=== PATIENT | male | born 1970 | race Caucasian/White ===

== ENCOUNTER 2017-01-23 13:49 | Inpatient (IN) | payer SELFPAY ==
[2017-01-23 13:54] VITALS: BMI 22.3
--- NOTE | 2017-01-23 14:07 | DR.GENAD ---
HPI - PCP Primary Care Physician: derek hill - HPI Comment HPI Comment: EXPOSE TO HEAT SEVERAL DAYS AND FEELING SICK. NAUSEATED, MUSCLE PAIN, CHEST AND STOMACK PAIN, AND HEADACHE. NO FEVER. HAVING NEAR SYNCOPAL EPISODES EVERY TIME HE GETS UP. NO FEVER. WEAK AND DRAIN OF ENERGY. - Complaint/Symptoms Chief Complaint Doctors Comments: LOW BLOOD PRESSURE, DEHYDRATION AND CHEST AND MUSCLE PAIN FOR FEW DAYS. Chief Complaint:: patient stated he has been having chest pain , back pain, fainting, dehydration, and low blood pressure - Nurses notes reviewed Nurses Notes Review: Yes - Source History Provided: Patient - Mode of Arrival Mode of Arrival: Ambulatory - Timing Onset of Chief Complaint: 01/20/17 Came on: Suddenly - Duration Duration: Constant Duration: Days - Severity Severity: Moderate PMH - PMH Past Medical History: Yes Past Medical History: Hypertension Past Surgical History: Yes Surgical History: Ortho Surgery - Family History History of Family Medical Conditions: No - Social History Does patient currently use any type of tobacco product: Yes Have you used tobacco products in the last 12 months: Yes Type of Tobacco Use: Cigarettes How many years tobacco product used: 20 Does any household member use tobacco: No Alcohol Use: Occasionally Do you use any recreational Drugs:: No Lives With: Family Lives Where: Home - infectious screening In the last 2 months have you had wt loss of >10#?: NO Have you had fever, night sweats or hemotysis?: No Have you traveled outside the country in the last 6 months?: No Isolation: Standard ROS - Review of Systems Constitutional: Weakness, Fatigue, Loss of Appetite. negative: Chills, Fever Eyes: Blurred Vision. negative: Eye Pain, Discharge ENTM: No Symptoms Reported. negative: Ear Pain, Nose Discharge, Nose Congestion , Throat Pain Respiratoy: Non-Productive Cough, Short of Breath. negative: Productive Cough, Wheezing, Hemoptysis Cardiovascular: Chest Pain, Palpitations Gastrointestinal/Abdominal: Nausea, Vomiting Genitourinary: No Symptoms Reported. negative: Dysuria, Frequency, Hematuria Neurological: Headache, Weakness, Dizziness Musculoskeletal: Muscle Pain Integumentary: No Symptoms Reported Hematologic/Lymphatic: No Symptoms Reported Endocrine: No Symptoms Reported All Other Systems: Reviewed and Negative PE - Vital Signs Vitals: Temperature 98.6 F Pulse Rate [Left Brachial] 68 Pulse Rate 79 Respiratory Rate 18 Blood Pressure [Left Arm] 110/64 Blood Pressure 109/67 O2 Sat by Pulse Oximetry 100 - General Limitations: No Limitations General Appearance: Alert - Head Head Exam: Normal Inspection - Eyes Eye exam: Normal Appearance - ENT ENT Exam: Normal External Ear Exam External Ear Exam: Normal External Inspection TM/Canal Exam: Bilateral Normal Nose Exam: Normal Nose Exam Mouth Exam: Normal Inspection Throat Exam: Normal Inspection - Neck Neck Exam: Normal Inspection, Trachea Midline - Chest Chest Inspection: Symmetric Chest Wall Rise - Respiratory Respiratory Exam: Normal Lung Sounds Bilat Respiratory Exam: Bilateral Clear to Auscultation - Cardiovascular Cardiovascular Exam: Regular Rate, Normal Rhythm, Normal Heart Sounds - Abdominal Exam Abdominal Exam: Normal Bowel Sounds, Soft, Tenderness Abdominal Tenderness: Diffuse, Mild - Extremities Extremities Exam: Normal Inspection - Back Back Exam: Normal Inspection - Neurologic Neurological Exam: Alert, Oriented X3 - Psychiatric Psychiatric Exam: Normal Affect, Normal Mood - Skin Skin Exam: Normal Color MDM - Additional Information Additional Information Obtained From: Family - Differential Diagnosis Differential Diagnosis: ACUTE RENAL FAILURE, HYPOTENSION, DEHYDRATION, HEAT ILLNESS. Course - Treatment Treatment: SEE ORDERS. - Consultation Consultation Comments: DISCUSS PATIENT WITH DR. LR. HE WILL ADMIT PATIENT. - Education/Counseling Education/Counseling: Patient, Family, Education Educated On: Treatment, Diagnosis ROR - Labs Reviewed Laboratory Results Reviewed?: Yes Result Diagrams: 01/24/17 05:03 01/24/17 05:03 Laboratory: WBC 8.3 X10^3/uL (3.6-10.0) 01/23/17 14:09 RBC 4.64 X10^6/uL (4.7-6.0) L 01/23/17 14:09 Hgb 14.5 g/dL (13.5-18.0) 01/23/17 14:09 Hct 41.0 % (42.0-54.0) L 01/23/17 14:09 MCV 88.5 fL (80.0-100.0) 01/23/17 14:09 MCH 31.3 pg (27.0-34.0) 01/23/17 14:09 MCHC 35.4 g/dL (33.0-35.0) H 01/23/17 14:09 RDW 14.4 % (11.6-16.5) 01/23/17 14:09 Plt Count 174 X10^3/uL (150.0-450.0) 01/23/17 14:09 MPV 9.2 fL (7.4-11.0) 01/23/17 14:09 Neut % 68.3 % (42.0-75.0) 01/23/17 14:09 Lymph % 18.7 % (21.0-51.0) L 01/23/17 14:09 [place] % 11.6 % (0.0-13.0) 01/23/17 14:09 Eos % 1.0 % (0.9-2.9) 01/23/17 14:09 Baso % 0.4 % (0.2-1.0) 01/23/17 14:09 Neut # 5.7 x10^3/uL (2.2-4.8) H 01/23/17 14:09 Lymph # 1.6 X10^3/uL (1.3-2.9) 01/23/17 14:09 [place] # 1.0 x10^3/uL (0.3-0.8) H 01/23/17 14:09 Eos # 0.1 x10^3/uL (0.0-0.2) 01/23/17 14:09 Baso # 0.0 X10^3/uL (0.0-0.1) 01/23/17 14:09 Absolute Nucleated RBC 0.1 /100WBC 01/23/17 14:09 Sodium 139 mmol/L (136-145) 01/23/17 14:09 Corrected Sodium TNP 01/23/17 14:09 Potassium 4.3 mmol/L (3.5-5.1) 01/23/17 14:09 Chloride 101 mmol/L (98-107) 01/23/17 14:09 Carbon Dioxide 25.6 mmol/L (21-32) 01/23/17 14:09 BUN 79 mg/dL (7-18) H 01/23/17 14:09 Creatinine 7.13 mg/dL (0.70-1.30) H 01/23/17 14:09 Est GFR (MDRD) Af Amer 11 (>60) L 01/23/17 14:09 Est GFR (MDRD) Non-Af 9 (>60) L 01/23/17 14:09 Glucose 90 mg/dL (65-99) 01/23/17 14:09 Calcium 9.6 mg/dL (8.5-10.1) 01/23/17 14:09 Corrected Calcium TNP 01/23/17 14:09 Total Bilirubin 0.50 mg/dL (0.2-1.0) 01/23/17 14:09 AST 28 Units/L (15-37) 01/23/17 14:09 ALT 46 Units/L (12-78) 01/23/17 14:09 Alkaline Phosphatase 62 Units/L (46-116) 01/23/17 14:09 Creatine Kinase 266 Units/L (39-308) 01/23/17 14:09 CK-MB (CK-2) 7.0 ng/mL (0-4.0) H* 01/23/17 14:09 CK/CKMB % Calc 2.6 % (<4) 01/23/17 14:09 Troponin I < 0.02 ng/mL (0-1.5) 01/23/17 14:09 Total Protein 7.6 g/dL (6.4-8.2) 01/23/17 14:09 Albumin 3.9 g/dL (3.4-5.0) 01/23/17 14:09 Globulin 3.7 g/dL (2.5-4.5) 01/23/17 14:09 Albumin/Globulin Ratio 1.1 Ratio (1.1-2.1) 01/23/17 14:09 Specimen Type Clean catch urine 01/23/17 15:49 Urine Color Dark yellow (YELLOW) 01/23/17 15:49 Urine Appearance Clear (CLEAR) 01/23/17 15:49 Urine pH 5.0 (5.0 - 8.0) 01/23/17 15:49 Ur Specific [place] 1.020 (1.000-1.030) 01/23/17 15:49 Urine Protein 2+ (NEGATIVE) 01/23/17 15:49 Urine Glucose (UA) Negative (NEGATIVE) 01/23/17 15:49 Urine Ketones Negative (NEGATIVE) 01/23/17 15:49 Urine Occult Blood 2+ (NEGATIVE) 01/23/17 15:49 Urine Nitrite Negative (NEGATIVE) 01/23/17 15:49 Urine Bilirubin Negative (NEGATIVE) 01/23/17 15:49 Urine Urobilinogen Normal (NORMAL) 01/23/17 15:49 Ur Leukocyte Esterase Negative (NEGATIVE) 01/23/17 15:49 Urine RBC 4-8 /HPF (NEGATIVE) 01/23/17 15:49 Urine WBC 0-1 /HPF (NEGATIVE) 01/23/17 15:49 Ur Squamous Epith Cells Few /HPF (NEGATIVE) 01/23/17 15:49 Ur Transition Epith Cell Many /HPF (NEGATIVE) 01/23/17 15:49 Ur Renal Epithelial Cell Moderate /HPF (NEGATIVE) 01/23/17 15:49 Urine Bacteria Negative /HPF (NEGATIVE) 01/23/17 15:49 Ur Culture Indicated? No/not indicated 01/23/17 15:49 - XRAY XRAY Interpreted by: Radiologist XRAY Findings: REPORT DISCUSS WITH PATIENT. - EKG Rhythm: NSR (EKG NOTED.) - Diagnosis Discharge Problem: Dehydration, Orthostatic hypotension, Heat effects Acute renal failure Qualifiers: Acute renal failure type: unspecified Qualified Code(s): N17.9 - Acute kidney failure, unspecified Heat causing syncope Qualifiers: Encounter type: initial encounter Qualified Code(s): T67.1XXA - Heat syncope, initial encounter - Discharge Plan Disposition: ADMITTED INPATIENT Condition: Stable - Follow ups/Referrals - Instructions
[2017-01-23] MEDS ORDERED: NS 1000 ML 1,000 ML ONE ×2 (14:09→15:46)
[2017-01-23] MEDS ORDERED: NS 1000 ML 1,000 ML IV ONE (14:27)
[2017-01-23 14:56] LABS: BASOPHILS % (AUTO) 0.4 % (0.2-1.0); EOSINOPHILS # (AUTO) 0.1 x10^3/uL (0.0-0.2); HEMOGLOBIN 14.5 g/dL (13.5-18.0); LYMPHOCYTES # (AUTO) 1.6 X10^3/uL (1.3-2.9); LYMPHOCYTES % (AUTO) 18.7 % (21.0-51.0); MEAN CORPUSCULAR HEMOGLOBIN 31.3 pg (27.0-34.0); MEAN CORPUSCULAR HGB CONC 35.4 g/dL (33.0-35.0); MEAN CORPUSCULAR VOLUME 88.5 fL (80.0-100.0); MEAN PLATELET VOLUME 9.2 fL (7.4-11.0); MONOCYTES % (AUTO) 11.6 % (0.0-13.0); NEUTROPHILS # (AUTO) 5.7 x10^3/uL (2.2-4.8); NEUTROPHILS % (AUTO) 68.3 % (42.0-75.0); PLATELET COUNT 174 X10^3/uL (150.0-450.0); RED BLOOD COUNT 4.64 X10^6/uL (4.7-6.0); RED CELL DISTRIBUTION WIDTH 14.4 % (11.6-16.5); WHITE BLOOD COUNT 8.3 X10^3/uL (3.6-10.0)
[2017-01-23 15:07] LABS: BLOOD UREA NITROGEN 79 mg/dL (7-18); CALCIUM 9.6 mg/dL (8.5-10.1); CARBON DIOXIDE 25.6 mmol/L (21-32); CHLORIDE 101 mmol/L (98-107); CREATININE 7.13 mg/dL (0.70-1.30); SODIUM 139 mmol/L (136-145); TROPONIN I < 0.02 ng/mL (0-1.5); eGFR BLACK RACES 11 (>60); eGFR NON BLACK RACES 9 (>60)
--- NOTE | 2017-01-23 15:18 | RAD ---
HISTORY: Chest pain and dehydration and weakness Study: AP chest Comparison: None Findings: The trachea is midline. The cardiac silhouette is unremarkable. The lungs are clear without focal i nfiltrate or effusion. The bony thorax is unremarkable. IMPRESSION: 1. No acute cardiopulmonary disease. Reported By:
[2017-01-23 15:30] LABS: ALANINE AMINOTRANSFERASE 46 Units/L (12-78); ALBUMIN 3.9 g/dL (3.4-5.0); ALKALINE PHOSPHATASE 62 Units/L (46-116); ASPARTATE AMINO TRANSFERASE 28 Units/L (15-37); CKMB % 2.6 % (<4); CREATINE KINASE 266 Units/L (39-308); TOTAL PROTEIN 7.6 g/dL (6.4-8.2)
[2017-01-23 16:40] LABS: BILIRUBIN,URINE NEGATIVE (NEGATIVE); BLOOD/HEMOGLOBIN,URINE 2+ (NEGATIVE); GLUCOSE, URINE NEGATIVE (NEGATIVE); KETONES,URINE NEGATIVE (NEGATIVE); LEUKOCYTE ESTERASE ,URINE NEGATIVE (NEGATIVE); NITRITES,URINE NEGATIVE (NEGATIVE); PROTEIN,URINE 2+ (NEGATIVE); UROBILINOGEN,URINE NORMAL (NORMAL)
[2017-01-23] MEDS: NS 1000 ML 1,000 ML IV SCH ×3 (16:57→23:01)
[2017-01-23 16:59] LABS: APPEARANCE,URINE CLEAR (CLEAR); BACTERIA,URINE NEGATIVE /HPF (NEGATIVE); COLOR,URINE DARK YELLOW (YELLOW); SQUAMOUS EPITHELIAL CELL,UR FEW /HPF (NEGATIVE)
[2017-01-23 17:00] LABS: RENAL EPITHELIAL CELLS,URINE MODERATE /HPF (NEGATIVE)
[2017-01-23] MEDS ORDERED: NICODERM PATCH 21 MG/24 HR TD ONE (17:02)
[2017-01-23] MEDS: NICODERM PATCH 21 MG/24 HR TD SCH (17:40)
[2017-01-23] MEDS ORDERED: ATIVAN INJ 2 MG VIAL IVP ONE (18:31)
[2017-01-23] MEDS ORDERED: XYLOCAINE VISCOUS ONE (18:32)
[2017-01-23] MEDS ORDERED: ATIVAN INJ 2 MG VIAL ONE (18:33)
[2017-01-23] MEDS: NORCO 5/325 MG TAB PO PRN (20:26)
[2017-01-24] MEDS: NS 1000 ML 1,000 ML IV SCH ×5 (04:11→20:50)
[2017-01-24 06:11] LABS: BASOPHILS % (AUTO) 0.8 % (0.2-1.0); EOSINOPHILS # (AUTO) 0.1 x10^3/uL (0.0-0.2); EOSINOPHILS % (AUTO) 2.6 % (0.9-2.9); HEMATOCRIT 34.8 % (42.0-54.0); HEMOGLOBIN 12.5 g/dL (13.5-18.0); LYMPHOCYTES # (AUTO) 1.4 X10^3/uL (1.3-2.9); LYMPHOCYTES % (AUTO) 32.2 % (21.0-51.0); MEAN CORPUSCULAR HEMOGLOBIN 31.8 pg (27.0-34.0); MEAN CORPUSCULAR HGB CONC 35.9 g/dL (33.0-35.0); MEAN CORPUSCULAR VOLUME 88.5 fL (80.0-100.0); MEAN PLATELET VOLUME 9.3 fL (7.4-11.0); MONOCYTES # (AUTO) 0.5 x10^3/uL (0.3-0.8); MONOCYTES % (AUTO) 10.4 % (0.0-13.0); NEUTROPHILS # (AUTO) 2.4 x10^3/uL (2.2-4.8); PLATELET COUNT 122 X10^3/uL (150.0-450.0); RED BLOOD COUNT 3.93 X10^6/uL (4.7-6.0); RED CELL DISTRIBUTION WIDTH 14.3 % (11.6-16.5); WHITE BLOOD COUNT 4.4 X10^3/uL (3.6-10.0)
[2017-01-24 06:37] LABS: ALANINE AMINOTRANSFERASE 35 Units/L (12-78); ALBUMIN 2.8 g/dL (3.4-5.0); ALKALINE PHOSPHATASE 50 Units/L (46-116); ASPARTATE AMINO TRANSFERASE 21 Units/L (15-37); BLOOD UREA NITROGEN 61 mg/dL (7-18); CALCIUM 8.3 mg/dL (8.5-10.1); CARBON DIOXIDE 23.8 mmol/L (21-32); CHLORIDE 114 mmol/L (98-107); CKMB % 2.2 % (<4); COR CA(FOR HYPOALB) 9.3 mg/dL (8.5-10.1); CREATINE KINASE 131 Units/L (39-308); CREATINE KINASE MB 2.9 ng/mL (0-4.0); CREATININE 2.56 mg/dL (0.70-1.30); SODIUM 145 mmol/L (136-145); TOTAL PROTEIN 5.8 g/dL (6.4-8.2); TROPONIN I < 0.02 ng/mL (0-1.5); eGFR BLACK RACES 35 (>60); eGFR NON BLACK RACES 29 (>60)
[2017-01-24] MEDS: NICODERM PATCH 21 MG/24 HR TD SCH (09:28)
[2017-01-24] MEDS: NORCO 5/325 MG TAB PO PRN ×2 (10:00→20:49)
--- NOTE | 2017-01-24 10:25 | DR.H&P ---
H&P - History & Physical for Day of: H&P Date: 01/23/17 - Chief Complaint Chief Complaint: CHEST PAIN, SHORT OF BREATH, BODY ACHES, DEHYDRATION, FAINTING - Allergies Allergies/Adverse Reactions: Allergies Allergy/AdvReac Type Severity Reaction Status Date / Time No Known Drug Allergies Allergy Verified 01/23/17 13:50 - History of Present Illness History of Present Illness: IS A 46 YEAR OLD PATIENT OF [facility] WHO PRESENTED TO THE EMERGENCY ROOM WITH COMPLAINTS OF CHEST PAIN, SHORTNESS OF BREATH, BACK PAIN, FAINTING, DEHYDRATION, AND LOW BLOOD PRESSURE, AND MUSCLE PAINS. PATIENT REPORTS THAT HE HAS BEEN WORKING OUT IN THE HEAT AND FEELING SICK. HE ALSO REPORTS COMPLAINTS OF HEADACHE AND DIZZINESS, BUT DENIES FEVER. ON EXAMINATION, BILATERAL LUNGS WERE NOTED CLEAR TO AUSCULTATION. ON ARRIVAL TO ER, PATIENTS VITAL SIGNS WERE 98.3-96-32-100-109/67. CBC, CMP, URINALYSIS, EKG, AND CHEST XRAY WERE OBTAINED. ABNORMAL LAB VALUES INCLUDE THE FOLLOWING: RBC 4.64, HCT 41, BUN 79, CREATININE 7.13, GFR 9, CK-MB 7.0. CHEST XRAY REPORTS NO ACUTE CARDIOPULMONARY DISEASE. EKG REPORTS SINUS RHYTHM WITH HR 74. HE WAS GIVEN NS BOLUS IN ER. WE ADMITTED PATIENT FOR FURTHER TREATMENT AND EVALUATION OF ACUTE RENAL FAILURE. WE STARTED PATIENT ON NS @ 250ML/HR. WE PLANNED TO CHECK A CBC, CMP, AND CARDIAC ENZYMES IN THE MORNING AND CONTINUE TO MONITOR PATIENT. - Past Medical History Past Medical History: Anxiety, Arthritis, Depression, GERD, Hypertension, PUD - Past Surgical History Surgical History: Ortho Surgery - Family History Family Medical History: Hypertension - Social History Does patient currently use any type of tobacco product: Yes Have you used tobacco products in the last 12 months: Yes Type of Tobacco Use: Cigarettes How many years tobacco product used: 20 Does any household member use tobacco: No Alcohol Use: Occasionally Drug Use: None - Medications Home Medications: Lisinopril [ZESTRIL *] 40 mg PO DAILY 01/23/17 [History Confirmed 01/23/17] Lorazepam [Ativan Tab 1 mg] 1 mg PO BID 01/23/17 [History Confirmed 01/23/17] Zolpidem Tartrate [Ambien] 10 mg PO HS PRN 01/23/17 [History Confirmed 01/23/17] - Review of Systems Constitutional: See HPI, Weakness Eyes: Vision Change (BLURRED VISION ) ENT: No Symptoms Reported Respiratory: Cough, Shortness of Breath Cardiovascular: Chest Pain, Light Headedness Gastrointestinal: Nausea, Vomiting Genitourinary: No Symptoms Reported Musculoskeletal: See HPI (BODY ACHES ), Other Skin: No Symptoms Reported Neurological: Weakness, Other (HEADACHE ) - Physical Exam Vital Signs: Temperature 98.6 F Pulse Rate [Left Brachial] 63 Pulse Rate 79 Respiratory Rate 18 Blood Pressure [Left Arm] 125/71 Blood Pressure 109/67 O2 Sat by Pulse Oximetry 97 Oriented: Normal Eyes: Blurred Vision Ear: Normal Nose: Normal Throat: Normal Respiratory: Clear Throughout Cardiovascular: Normal : Normal Auscultation: Bowel Sounds: Normal Palpation: Normal Tenderness: Normal Skin: Normal Musculoskeletal: Normal Psychiatric: Normal Mood Description: Calm Affect: Normal Speech Pattern: Clear - Assessment/Plan (1) Acute renal failure Qualifiers: Acute renal failure type: unspecified Qualified Code(s): N17.9 - Acute kidney failure, unspecified Status: Acute Plan: NS @ 250ML/HR, CONTINUE TO MONITOR (2) Dehydration Status: Acute Plan: NS @ 250ML/HR, CONTINUE TO MONITOR
--- NOTE | 2017-01-24 11:03 | PCM.PROG ---
Progress Note - Progress Note for Day of Date: 01/24/17 - Subjective Subjective: WAS ADMITTED FOR ACUTE RENAL FAILURE AND DEHYDRATION. HE IS ALERT AND ORIENTED, LYING IN BED ON MORNING ROUNDS. TODAY, HE CONTINUES WITH WEAKNESS AND BODY ACHES, BUT OVERALL, REPORTS FEELING MUCH BETTER. ON EXAMINATION, LUNGS ARE NOTED CLEAR TO AUSCULTATION. ABDOMEN IS ROUND, SOFT, AND NON TENDER. BOWEL SOUNDS ARE NOTED NORMAL IN ALL QUADRANTS. HIS VITAL SIGNS THIS MORNING ARE 98.6-63-18-97%-125/71. A CBC AND CMP WERE OBTAINED TODAY. ABNORMAL LAB VALUES INCLUDE THE FOLLOWING: RBC 3.93, HGB 12.5, HCT 34.8, CHLORIDE 114. BUN 6, CREATININE 2.56, GLUCOSE 102, CALCIUM 8.3, TOTAL PROTEIN 5.8, ALBUMIN 2.8. CARDIAC PROFILE NEGATIVE. WE WILL CONTINUE WITH CURRENT PLAN OF CARE AND CONTINUE HYDRATING PATIENT. WE PLAN TO RECHECK CBC AND CMP IN THE MORNING AND CONTINUE TO MONITOR PATIENT. - Past Medical Family Social History Past Med/Fam/Surg Hx: No changes since H&P Allergies: Allergies No Known Drug Allergies Allergy (Verified 01/23/17 13:50) - Review of Systems ROS: No change since H&P - Vital Signs and I&O's Vital Signs: Temperature 98.6 F Pulse Rate [Left Brachial] 63 Pulse Rate 79 Respiratory Rate 18 Blood Pressure [Left Arm] 125/71 Blood Pressure 109/67 O2 Sat by Pulse Oximetry 97 Intake and Output: Intake & Output 01/21/17 01/22/17 01/23/17 01/24/17 11:59 11:59 11:59 11:59 Intake Total 2842 Output Total 450 Balance 2392 - Physical Exam Oriented: Normal Eyes: Blurred Vision Ear: Normal Nose: Normal Throat: Normal Respiratory: Normal Cardiovascular: Normal : Normal Auscultation: Bowel Sounds: Normal Palpation: Normal Tenderness: Normal Skin: Normal Musculoskeletal: Normal Psychiatric: Normal Mood Description: Calm Affect: Normal Speech Pattern: Clear - Laboratory and Diagnostics Result Diagrams: 01/24/17 05:03 01/24/17 05:03 Labs: Laboratory WBC 4.4 X10^3/uL (3.6-10.0) 01/24/17 05:03 RBC 3.93 X10^6/uL (4.7-6.0) L 01/24/17 05:03 Hgb 12.5 g/dL (13.5-18.0) L D 01/24/17 05:03 Hct 34.8 % (42.0-54.0) L 01/24/17 05:03 MCV 88.5 fL (80.0-100.0) 01/24/17 05:03 MCH 31.8 pg (27.0-34.0) 01/24/17 05:03 MCHC 35.9 g/dL (33.0-35.0) H 01/24/17 05:03 RDW 14.3 % (11.6-16.5) 01/24/17 05:03 Plt Count 122 X10^3/uL (150.0-450.0) L 01/24/17 05:03 MPV 9.3 fL (7.4-11.0) 01/24/17 05:03 Neut % 54.0 % (42.0-75.0) 01/24/17 05:03 Lymph % 32.2 % (21.0-51.0) 01/24/17 05:03 [place] % 10.4 % (0.0-13.0) 01/24/17 05:03 Eos % 2.6 % (0.9-2.9) 01/24/17 05:03 Baso % 0.8 % (0.2-1.0) 01/24/17 05:03 Neut # 2.4 x10^3/uL (2.2-4.8) 01/24/17 05:03 Lymph # 1.4 X10^3/uL (1.3-2.9) 01/24/17 05:03 [place] # 0.5 x10^3/uL (0.3-0.8) 01/24/17 05:03 Eos # 0.1 x10^3/uL (0.0-0.2) 01/24/17 05:03 Baso # 0.0 X10^3/uL (0.0-0.1) 01/24/17 05:03 Absolute Nucleated RBC 0.1 /100WBC 01/24/17 05:03 Sodium 145 mmol/L (136-145) 01/24/17 05:03 Corrected Sodium TNP 01/24/17 05:03 Potassium 3.8 mmol/L (3.5-5.1) 01/24/17 05:03 Chloride 114 mmol/L (98-107) H 01/24/17 05:03 Carbon Dioxide 23.8 mmol/L (21-32) 01/24/17 05:03 BUN 61 mg/dL (7-18) H 01/24/17 05:03 Creatinine 2.56 mg/dL (0.70-1.30) H 01/24/17 05:03 Est GFR (MDRD) Af Amer 35 (>60) L 01/24/17 05:03 Est GFR (MDRD) Non-Af 29 (>60) L 01/24/17 05:03 Glucose 102 mg/dL (65-99) H 01/24/17 05:03 Calcium 8.3 mg/dL (8.5-10.1) L 01/24/17 05:03 Corrected Calcium 9.3 mg/dL (8.5-10.1) 01/24/17 05:03 Total Bilirubin 0.20 mg/dL (0.2-1.0) 01/24/17 05:03 AST 21 Units/L (15-37) 01/24/17 05:03 ALT 35 Units/L (12-78) 01/24/17 05:03 Alkaline Phosphatase 50 Units/L (46-116) 01/24/17 05:03 Creatine Kinase 131 Units/L (39-308) 01/24/17 05:03 CK-MB (CK-2) 2.9 ng/mL (0-4.0) 01/24/17 05:03 CK/CKMB % Calc 2.2 % (<4) 01/24/17 05:03 Troponin I < 0.02 ng/mL (0-1.5) 01/24/17 05:03 Total Protein 5.8 g/dL (6.4-8.2) L 01/24/17 05:03 Albumin 2.8 g/dL (3.4-5.0) L 01/24/17 05:03 Globulin 3.0 g/dL (2.5-4.5) 01/24/17 05:03 Albumin/Globulin Ratio 0.9 Ratio (1.1-2.1) L 01/24/17 05:03 Specimen Type Clean catch urine 01/23/17 15:49 Urine Color Dark yellow (YELLOW) 01/23/17 15:49 Urine Appearance Clear (CLEAR) 01/23/17 15:49 Urine pH 5.0 (5.0 - 8.0) 01/23/17 15:49 Ur Specific [place] 1.020 (1.000-1.030) 01/23/17 15:49 Urine Protein 2+ (NEGATIVE) 01/23/17 15:49 Urine Glucose (UA) Negative (NEGATIVE) 01/23/17 15:49 Urine Ketones Negative (NEGATIVE) 01/23/17 15:49 Urine Occult Blood 2+ (NEGATIVE) 01/23/17 15:49 Urine Nitrite Negative (NEGATIVE) 01/23/17 15:49 Urine Bilirubin Negative (NEGATIVE) 01/23/17 15:49 Urine Urobilinogen Normal (NORMAL) 01/23/17 15:49 Ur Leukocyte Esterase Negative (NEGATIVE) 01/23/17 15:49 Urine RBC 4-8 /HPF (NEGATIVE) 01/23/17 15:49 Urine WBC 0-1 /HPF (NEGATIVE) 01/23/17 15:49 Ur Squamous Epith Cells Few /HPF (NEGATIVE) 01/23/17 15:49 Ur Transition Epith Cell Many /HPF (NEGATIVE) 01/23/17 15:49 Ur Renal Epithelial Cell Moderate /HPF (NEGATIVE) 01/23/17 15:49 Urine Bacteria Negative /HPF (NEGATIVE) 01/23/17 15:49 Ur Culture Indicated? No/not indicated 01/23/17 15:49 - Plan (1) Acute renal failure Status: Acute Qualifiers: Acute renal failure type: unspecified Qualified Code(s): N17.9 - Acute kidney failure, unspecified Plan: NS @ 250ML/HR, CONTINUE TO MONITOR (2) Dehydration Status: Acute Plan: NS @ 250ML/HR, CONTINUE TO MONITOR
[2017-01-25] MEDS: NS 1000 ML 1,000 ML IV SCH ×3 (02:16→09:03)
[2017-01-25 06:13] LABS: EOSINOPHILS # (AUTO) 0.1 x10^3/uL (0.0-0.2); EOSINOPHILS % (AUTO) 2.2 % (0.9-2.9); HEMATOCRIT 31.2 % (42.0-54.0); HEMOGLOBIN 11.4 g/dL (13.5-18.0); LYMPHOCYTES # (AUTO) 1.9 X10^3/uL (1.3-2.9); MEAN CORPUSCULAR HEMOGLOBIN 32.5 pg (27.0-34.0); MEAN CORPUSCULAR HGB CONC 36.4 g/dL (33.0-35.0); MEAN CORPUSCULAR VOLUME 89.3 fL (80.0-100.0); MEAN PLATELET VOLUME 9.4 fL (7.4-11.0); MONOCYTES # (AUTO) 0.4 x10^3/uL (0.3-0.8); MONOCYTES % (AUTO) 9.9 % (0.0-13.0); NEUTROPHILS % (AUTO) 43.9 % (42.0-75.0); PLATELET COUNT 105 X10^3/uL (150.0-450.0); RED CELL DISTRIBUTION WIDTH 14.2 % (11.6-16.5); WHITE BLOOD COUNT 4.5 X10^3/uL (3.6-10.0)
[2017-01-25 07:11] LABS: ALANINE AMINOTRANSFERASE 30 Units/L (12-78); ALBUMIN 2.3 g/dL (3.4-5.0); ALKALINE PHOSPHATASE 42 Units/L (46-116); ASPARTATE AMINO TRANSFERASE 20 Units/L (15-37); BLOOD UREA NITROGEN 31 mg/dL (7-18); CALCIUM 7.7 mg/dL (8.5-10.1); CARBON DIOXIDE 21.7 mmol/L (21-32); COR CA(FOR HYPOALB) 9.1 mg/dL (8.5-10.1); CREATININE 0.99 mg/dL (0.70-1.30); SODIUM 145 mmol/L (136-145); TOTAL PROTEIN 5.1 g/dL (6.4-8.2); eGFR BLACK RACES > 60 (>60); eGFR NON BLACK RACES > 60 (>60)
[2017-01-25 07:14] LABS: CHLORIDE 117 mmol/L (98-107)
[2017-01-25] MEDS: NICODERM PATCH 21 MG/24 HR TD SCH (09:03)
[2017-01-25] MEDS ORDERED: ZESTRIL TAB 40 MG PO SCH (10:00)
[2017-01-25] MEDS ORDERED: ATIVAN TAB 1 MG PO SCH (11:13)
[2017-01-25] MEDS: NORCO 5/325 MG TAB PO PRN (11:22)
[2017-01-25] MEDS ORDERED: CATAPRES TAB 0.2 MG PO ONE (12:57)
[2017-01-25 15:23] VITALS: BP 175/86
== END 2017-01-25 14:50 | disposition home or self-care (01) | DRG 684 ==
LOC: ER 13:57 → ICU 17:13
PROVIDERS: ADMIT Internal Medicine; ATTEND Internal Medicine
DX: N17.8 Other acute kidney failure (principal); E86.0 Dehydration; T67.1XXA Heat syncope, initial encounter; I95.1 Orthostatic hypotension; R07.89 Other chest pain; M54.5 Low back pain; M79.1 Myalgia; R06.02 Shortness of breath
CPT/HCPCS: 36415; 51702; 71010; 80053; 80074; 81001; 82550; 82553; 84484; 85025; 93005; 93010; 96365; 96367; 96374; 99283; A4222; J2060